=== PATIENT | female | born 1980 | race Caucasian/White ===

== ENCOUNTER → 2019-04-05 | Outpatient (CLI) | payer OTHER ==
[~2019-04-05] VITALS: Ht 162.6 cm; Wt 80.3 kg
[~2019-04-05] MED LIST: ADVAIR HFA115 MCG/21; BREO ELLIPTA 11 EACH INH; CENTRUM SILVER1 EACH PO; CLONAZEPAM 1 MG1 M1; DOXEPIN 10 MG C10 MG PO; FISH OIL 1,0001 EAC9 PO; FLEXERIL; HALDOL 0.5 MG0.5 MG; HYDROXYZINE HCL25 M1 PO; IBUPROFEN 800800 M1; LATUDA40 MG; MAGNESIUM250 M1 PO; NEURONTIN 300M300 M2 PO; PREDNISONE 10 M10 MG; PROAIR HFA8.5 GM INH; SERTRALINE HCL100 MG PO; STRATTERA25 MG PO; SYNTHROID125 MC1 PO; TRAMADOL 50 MG50 MG; VICODIN 5-3001 EACH; VRAYLAR3 MG PO; WELLBUTRIN SR150 MG
[2019-04-05 13:09] VITALS: BP 132/99
--- NOTE | 2019-04-05 13:26 | NUR ---
Pain Clinic Assessment: 1. History of Osteoarthritis: LOW BACK BILAT KNEES History of Rheumatoid Arthritis: Not Applicable 2. Height: 5 ft. 4 in. 162.6 cm. Weight: 177.0 lb. oz. 80.287 kg. Patient's BMI: 30.4 3. Vital Signs: BP: 132/99 Pulse: 93 Resp: 14 Temp: 02 Sat: 98 ECG Mon: 4. Pain Intensity: 7 5. Fall Risk: Dizziness: Y Needs help standing or walking: N Fallen in the last 3 months: N Fall risk comments: 6. Patient on Blood Thinner: None 7. History of Hypertension: N 8. Opioid Therapy greater than 6 weeks: N Opiate Contract Signed: 9. Risk Assessment Tool Provided: 10. Functional Assessment Tool: 11. Recreational Drug Use: Never Drug Type: Tobacco Use: Never Smoker Tobacco Type: Amount or Packs/day: How Many Years: Alcohol Use: No Frequency: Quant:
--- NOTE | 2019-04-05 14:00 | NUR ---
PATIENT VERY ANXIOUS AND ANGRY AT TIME OF DISCHARGE ONCE WE DISCUSSED WITH HER THAT SHE WOULD NOT BE RECEIVING PAIN MEDICATIONS FROM OUR FACILITY. SHE BECAME AGGITAED AND MAKING ACCUSATIONS THAT OUR PRACTICE WAS JUST TRYING TO TAKE HER MONEY. RANTING AND TOSSING MEDICAL EQUIPMENT. THIS NURSE CALMLY EXPLAINED WITH SECOND RN AT SIDE THAT WE AGREED TO TAKE HER CASE ON PER DR. VILLASEÑOR PROCEDURE ONLY AND THAT HER PRIMARY CARE WOULD NEED TO ADDRESS ANY MEDICATION NEEDS. I APOLOGIZED FOR HER FRUSTRATIONS AND EXPLAINED THAT WE ARE IN FACT CONTRIBUTING TO HER PAIN RELIEF BY PERFORMING THE INJECTION AND TRYING TO AID IN GETTING HER RELIEF FROM A PROCEDURAL/MEDICAL STANDPOINT. VITAL SIGNS WERE STABLE AT THE TIME SHE LEFT AGAINST MEDICAL ADVICE WITHOUT HER DISCHARGE INSTRUCTIONS. PHYSICIAN MADE AWARE, BUT PATIENT STORMED OUT OF FACILITY.
--- NOTE | 2019-04-05 15:00 | NUR ---
THIS NURSE CALLED PATIENT'S PRIMARY CARE PHYSICIAN, DR. RADHA HERNADEZ AND LEFT A VOICEMAIL ON THE NURSING LINE REGARDING PATIENT'S VISIT TODAY AND THAT SHE OPTED TO LEAVE AMA POST-PROCEDURE WITH MAKING A SCENE ONCE SHE BECAME AWARE THAT WE WOULD NOT BE WRITING PAIN MEDICATION AND THAT ANY MEDICATION MANAGEMENT WOULD NEED TO BE CONTINUED WITH DR. HERNADEZ. I LEFT OUR CONTACT INFORMATION FOR REFERENCE. THIS NURSE ALSO CALLED DR. STACK'S OFFICE WHOM REFERRED THE PATIENT TO US AND EXPLAINED THE PATIENT'S BEHAVIOR AND ACTIONS AFTER PROCEDURE. THEY ARE AWARE THAT THE PATIENT DID RECEIVE TREATMENT REQUESTED AND THEY CAN FOLLOW UP POST LESI. THEY WERE MADE AWARE THAT WE WOULD NOT BE CONTINUING CARE WITH THIS PATIENT IN THE FUTURE. I SPOKE WITH NADEEM HOLMAN OF HIS OFFICE AND SHE WAS VERY UNDERSTANDING AND APOLOGETIC OF THE SCENARIO AND WOULD MAKE DR. STACK AWARE.
--- NOTE | 2019-04-06 09:19 | HPC ---
[facility] [address] [place] [address] PAIN MANAGEMENT CONSULTATION Name: ZIA LAGUNA Room #: REG Jarvis Phelps.#: [id number] Admission: 04/05/19 Attend Phys: Bipin Finch DO Discharge: Date of : 76 Report #: [id number] THIS REPORT FOR: //name// CC: Milla BREWER NP DATE OF SERVICE: 04/05/2019 CHIEF COMPLAINT: Low back pain, left lower extremity pain. HISTORY OF PRESENT ILLNESS: As you know, the patient is a very unfortunate 39-year-old female who reports longstanding history of low back pain, left lower extremity pain that has progressively worsened. She states she has trialled injections in the past, somewhere in 2016 where she underwent 2 epidural injections, but these did not provide much in the way of improvement. She "just has put up with it over the past couple of years until which time her pain returned." She then sought evaluation through her PCP who referred the patient to Neurosurgery for evaluation. She saw a physician prosthetic assistant, Gia Brewer at [facility] and was evaluated. She was determined a possible candidate for lumbar epidural injection and subsequently referred to our clinic specifically for injection. The patient states today, her pain is continuous, describes the pain as shooting and stabbing, places current pain score 7/10, daily average at 6-7/10, worst pain has been is 10/10. The patient states that lifting and doing activities exacerbate symptoms, hot baths and pain medications and heating pads tend to improve pain. She has been referred to our clinic to undergo a lumbar epidural injection to address suspected lumbar radiculopathy. PAST MEDICAL HISTORY: 1. Seizure activity. 2. Asthma. 3. Hypertension. 4. Thyroid disease. 5. Multiple emotional problems. 6. Degenerative joint disease. 7. Osteoarthritis. 8. Chronic low back pain. PAST SURGICAL HISTORY: 1. Hand surgery for a ganglion cyst. 2. Bunionectomy. 3. Release of a trigger thumb. 4. Rectal prolapse surgery. SOCIAL HISTORY: The patient reports she is a nonsmoker, though she smells strongly of tobacco smoke. She denies IV or illicit drug use. Denies any [facility] [address] [place] [address] PAIN MANAGEMENT CONSULTATION Name: ZIA LAGUNA Room #: REG [facility].#: [id number] Admission: 04/05/19 Attend Phys: Bipin Finch DO Discharge: Date of : 76 Report #: [id number] chronic alcohol use. She is on disability, has been so for 12 years. She is receiving disability income on a monthly basis. She is not in litigation in regards to pain. She is unaccompanied today. REVIEW OF SYSTEMS: Positive for weight gain, night sweats, fatigue and weakness, frequent and recurrent headaches, wearing corrective eyewear, earaches with drainage, shortness of breath walking or lying flat, palpitations, wheezing and asthma, frequent urination, nocturia, painful menses, irregular menses, and vaginal discharge. Varicose veins, lightheadedness and dizziness, convulsions and seizures, numbness and tingling sensations, tremors, memory loss with confusion, nervousness, depression, insomnia, thyroid disease, excessive thirst, urination, heat and cold intolerance, slow to heal after cuts. All other review of systems negative per 12-point review of systems other than those listed in history of present illness. Pain impact score 60/60 indicating complete interference of daily activities secondary to pain. ALLERGIES: No known drug allergies. CURRENT MEDICATIONS: Magnesium 250 mg once a day, Strattera 25 mg once a day, doxepin 10 mg once a day, Breo Ellipta 100/25 mcg inhaled once a day, albuterol 2 puffs q.4 hours, omega-3 fish oil 1 tab per day, Centrum Silver 1 tab per day, sertraline 100 mg per day, gabapentin 300 mg 4 times a day, Vraylar 3 mg once a day, ibuprofen 800 mg once a day, levothyroxine 125 mcg a day, prednisone 10 mg once a day. IMAGING: MRI of lumbar spine obtained on 03/21/2019 shows T12-L1 unremarkable, L1-L2 unremarkable, L2-L3 unremarkable. L3-L4 unremarkable. L4-L5 shows mild facet hypertrophy, moderate disk space loss, mild annular disk bulge without central canal stenosis. There is no focal herniation. Bilateral foraminal disk osteophyte formation is noted resulting in moderate narrowing of the inferior portion of the lateral foramen on the left approaching the inferior surface of the left nerve, but no contact. There is moderate narrowing of the anterior right neural foramen, no contact of the nerve. Thecal sac measures 1.3 cm. L4-L5 rudimentary disk without disk herniation, central canal stenosis or neural foraminal stenosis, thecal sac measures 1.3 cm. PQRS: The patient has mild arthritic changes of the lumbar spine reports bilateral knee osteoarthritis. She is not suffering from rheumatoid arthritis. She is placing pain intensity today, 7/10, not a fall risk, has not had a fall in the last 3 months. She is not on blood thinners. She is not treated for hypertension. She reports she is not on any opioids, but does have a high opioid addiction potential. This is based on our assessment tool. Functional assessment shows a 60/60 indicating complete interference of daily activities secondary to due to pain. PHYSICAL EXAMINATION: [facility] [address] [place] [address] PAIN MANAGEMENT CONSULTATION Name: ZIA LAGUNA Room #: REG [facility]#: [id number] Admission: 04/05/19 Attend Phys: Bipin Finch DO Discharge: Date of : 76 Report #: [id number] VITAL SIGNS: Blood pressure 132/99, pulse 93, respiratory rate 14 and unlabored. The patient is 98% on room air. Height 5 feet 4 inches tall, weight 177 pounds, BMI calculated 30.4. GENERAL: Well-developed, well-nourished, well-hydrated, anxious, diaphoretic, 39-year-old female appearing stated age, pain is rated at 7/10. HEENT: Normocephalic, atraumatic. Pupils equal, round though somewhat smaller size of the pupil. She has difficulty maintaining eye contact. Speech is somewhat pressured. LUNGS: Clear, no wheeze, rhonchi or rales. CARDIOVASCULAR: Regular. No appreciable gallop, no rub. ABDOMEN: Soft, obese, normoactive bowel sounds. EXTREMITIES: Show no clubbing, no cyanosis, and no edema. MUSCULOSKELETAL: Lower extremity strength appears symmetrical 5/5, intact to light touch from L1 through S2 dermatomes. Seated straight leg raising negative. Supine straight leg raising positive on the left. Bj's test is negative. Modified Gaenslen's positive for axial low back pain. Ankle clonus negative. Babinski is negative. The patient has noted controllable movement in the left lower extremity and upper extremity. The patient indicates that these are tremors, though they are not by physical examination: These are intentional movements which cease with distraction. ASSESSMENT: 1. Possible lumbar radiculopathy. 2. Neural foraminal stenosis of lumbar spine. 3. Lumbosacral spondylosis with possible radiculopathy. 4. Chronic intractable pain. PLAN: 1. The patient has been referred to our service by physician prosthetic assistant, Gia Brewer to undergo lumbar epidural injection under fluoroscopic guidance to address suspected lumbar radiculopathy. If this was unsuccessful at alleviating her symptoms for an extended period of time, then she was to undergo a L4 nerve root block on the left side to determine if surgical options would be necessary. The patient was scheduled today to undergo a lumbar epidural injection under fluoroscopic guidance. Based on her physical exam, the description the patient uses in regards to pain, it would appear the patient is suffering from lumbar radiculopathy, though the findings of her MRI do not show significant compression of the L4 nerve root at that L4-L5 level, nor is there compression of the L5 nerve root. We discussed with the patient the findings of the MRI. We also discussed the distribution of symptoms and after a very long discussion of treatment, which we offered as the following physical therapy, stretching exercise, core strengthening, we also discussed the epidural injection for which the patient was referred to our clinic and surgical options. The patient chose to undergo the lumbar epidural injection. The patient was advised risks and benefits of a lumbar epidural injection. [address] [address] PAIN MANAGEMENT CONSULTATION Name: TERENCE LAGUNASHYANN Brown Room #: REG MARIA INES Simpson#: [id number] Admission: 04/05/19 Attend Phys: Bipin Finch DO Discharge: Date of : 76 Report #: [id number] These risks include but are not necessarily limited to bleeding, bruising, infection, worsening pain, no relief of pain, also risk of temporary or permanent muscle weakness, temporary or permanent nerve damage, possible paralysis, post-dural puncture headache and . The patient states understood and wished to proceed. 2. The patient requested that we provide her with a pain medication, I advised the patient she was sent specifically to undergo epidural injections and nerve blocks. We did not agree to see the patient for medication management as we are not taking on any new medication management patient at this time. She became quite upset and left our clinic AMA after undergoing a lumbar epidural injection, but not completing the postoperative evaluation and observation. She became somewhat verbally belligerent to both my nursing staff who are monitoring the observation area as well as the nurse who admitted the patient to our clinic. She removed all of the observation objective equipment including the blood pressure cuff, pulse oximetry, and threw them to the floor excusing herself. 3. We have advised the patient upon her leaving AMA that we would not be willing to see her back in consultation as she has not been compliant with our treatment course. It is unfortunate the patient is unwilling to follow through with the requested treatment course as this may provide some benefit for the foreseeable future. We will be returning her care to the nurse practitioner, Gia Brewer and back to her PCP who is the prescribing physician of her current medications. PROCEDURE NOTE PROCEDURE: L5-S1 left paramedian epidural steroid injection under fluoroscopic guidance. This is the first procedure of the first series that the patient is undergoing. After obtaining written consent, the patient was taken back to the fluoroscopy suite, placed in a prone position with pillow under the abdomen to decrease lumbar lordosis. The skin overlying the lumbosacral area was then prepped and draped in aseptic fashion. The L5-S1 vertebral interspace was then identified by AP fluoroscopy. The skin and subcutaneous tissue overlying the target site of injection was anesthetized with 3 mL 1% lidocaine. A 20-gauge 3-1/2 inch Tuohy needle was then advanced under fluoroscopic guidance towards the epidural space using a left paramedian approach. The epidural space was identified using loss of resistance to air technique. After negative aspiration for heme or cerebrospinal fluid, a total of 1 mL of Omnipaque was injected. A lumbar epidurogram was confirmed using both AP and lateral fluoroscopy. After negative aspiration for heme or cerebrospinal fluid, 5 mL of a solution containing 2 mL 40 mg per mL, 80 mg total triamcinolone along with 3 mL lidocaine 1% was injected in increments. Contrast spread was noted post [facility] [address] [place] [address] PAIN MANAGEMENT CONSULTATION Name: ZIA LAGUNA Room #: REG [facility].#: [id number] Admission: 04/05/19 Attend Phys: Bipin Finch DO Discharge: Date of : 76 Report #: [id number] epidural space. The needle was then retracted approximately half way and needle tract flushed with 1 mL of 1% lidocaine. Needle was then removed. There were no apparent sensory or motor deficits in the lower extremity following the procedure. A sterile bandage was placed over the injection site. The heart rate, pulse, oximetry and blood pressure were continuously monitored after the procedure. There were no apparent complications. The patient tolerated the procedure well and was carefully escorted to the recovery room in stable condition. There were no apparent complications. The patient left against medical advice prior to completing the full observational section after an epidural injection. <ELECTRONICALLY SIGNED> By: Bipin Finch DO 04/06/19918 [id number] Bipin Finch DO /nt
== END | disposition home or self-care (01) ==
LOC: PAIN 03-29 06:42
DX: M54.5 Low back pain (principal); G89.29 Other chronic pain; M48.061 Spinal stenosis, lumbar region without neurogenic claudication; M47.896 Other spondylosis, lumbar region; M79.605 Pain in left leg; I10 Essential (primary) hypertension; J45.909 Unspecified asthma, uncomplicated; E07.9 Disorder of thyroid, unspecified; M17.0 Bilateral primary osteoarthritis of knee; M19.90 Unspecified osteoarthritis, unspecified site; Z98.890 Other specified postprocedural states; Z79.899 Other long term (current) drug therapy